=== PATIENT | female | born 1940 | race Caucasian/White ===

== ENCOUNTER → 2019-05-10 | Outpatient (CLI) | payer MEDICARE ==
--- NOTE | 2019-05-12 13:22 | MM ---
Reason for exam: screening (asymptomatic). History: Patient is postmenopausal. Benign excisional biopsy. Physical Findings: A clinical breast exam by your physician is recommended on an annual basis and results should be correlated with mammographic findings. MG 3D Screening Mammo W/Cad Bilateral CC and MLO view(s) were taken. No prior studies available for comparison. There are scattered fibroglandular densities. There is no discrete abnormality. ASSESSMENT: Benign, BI-RAD 2 RECOMMENDATION: Routine screening mammogram of both breasts in 1 year.
== END | disposition home or self-care (01) ==
LOC: RADBDWWP 12:42
PROVIDERS: ATTEND Internal Medicine
DX: Z12.31 Encounter for screening mammogram for malignant neoplasm of breast (principal)
CPT/HCPCS: 77063; 77067

== ENCOUNTER → 2019-05-17 | Outpatient (CLI) | payer MEDICARE ==
[2019-05-17 10:21] VITALS: BP 158/62; PULSE 68; RESP 18; TEMP 97.8; BMI 28.5
--- NOTE | 2019-05-17 11:42 | P.HPOB ---
History of Present Illness H&P Date: 05/17/19 Chief Complaint: The patient is here for her routine gynecologic exam. This is an 78-year-old with an LMP of approximately 1998. The patient is here to establish with this office. It has been about 2 years since her last pelvic exam. She recently moved from [place] and lost her medical records. She is without gynecologic complaints and denies any postmenopausal bleeding. Review of Systems She has gained about 10 pounds during the past several months. She had previously lost 80 pounds 3 years ago which helped with her diabetes. She denies respiratory, cardiac and G.I. problems. She denies maltreatment or problems with falling. : Occasional leakage with coughing. Past Medical History Past Medical History: COPD, Diabetes Mellitus, Hyperlipidemia, Hypertension, Renal Disease, Thyroid Disorder Additional Past Medical History / Comment(s): Osteopenia, type 2 diabetes(diet controlled), mild renal insufficiency, emphysema. 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 She used HRT for years until 1984. History of Any Multi-Drug Resistant Organisms: None Reported Past Surgical History: Tonsillectomy, Tubal Ligation Past Psychological History: No Psychological Hx Reported Smoking Status: Former smoker Past Alcohol Use History: Rare (12 per year) Additional Past Alcohol Use History / Comment(s): Previously smoked 1 pack of cigarettes per day and quit in 1991. Past Drug Use History: None Reported Additional History: She has been a since approximately 1988 and is not seeing anybody at this time and is not sexually active. 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 - Past Family History Mother Additional Family Medical History / Comment(s): of related complications. Father Additional Family Medical History / Comment(s): Alcohol abuse. A grandfather had diabetes. Medications and Allergies Home Medications Medication Instructions Recorded Confirmed Type Acetaminophen [Tylenol Extra 500 mg PO DAILY 05/17/19 05/17/19 History Strength] Aspirin 81 mg PO DAILY 05/17/19 05/17/19 History Atenolol 25 mg PO DAILY 05/17/19 05/17/19 History Biotin 5,000 mcg PO DAILY 05/17/19 05/17/19 History Cholecalciferol (Vitamin D3) 2,000 unit PO DAILY 05/17/19 05/17/19 History [Vitamin D3] Hydrochlorothiazide 25 mg PO DAILY 05/17/19 05/17/19 History Levothyroxine Sodium 88 mcg PO DAILY 05/17/19 05/17/19 History Losartan Potassium 50 mg PO DAILY 05/17/19 05/17/19 History Multivit-Min/FA/Lycopen/Lutein 1 each PO DAILY 05/17/19 05/17/19 History [Centrum Silver Tablet] Simvastatin 40 mg PO DAILY 05/17/19 05/17/19 History Stool Softener 1 tab PO DAILY 05/17/19 05/17/19 History traMADol HCL [Ultram] 50 mg PO Q4-6H 05/17/19 05/17/19 History Allergies Allergy/AdvReac Type Severity Reaction Status Date / Time carbamazepine [From Tegretol] Allergy Rash/Hives Unverified 05/17/19 10:21 lidocaine [From Xylocaine] Allergy Anaphylaxis Unverified 05/17/19 10:21 Exam Vital Signs Temp Pulse Resp BP Pulse Ox 05/17/19 10:15 97.8 F 68 18 158/62 97 Intake and Output 05/16/19 05/17/19 05/17/19 22:59 06:59 14:59 Other: Weight 73.028 kg Height 5 feet 3 inches, weight 161 pounds, BMI 28.5. This is a well-developed well-nourished white female who is alert and oriented times 3 in no acute distress. HEENT: Within normal limits. NECK: Supple without mass or thyromegaly. CHEST AND LUNGS: Clear to auscultation. HEART: Regular rate and rhythm. BREASTS: Are without mass or discharge. AXILLARY EXAM: Negative for adenopathy. BACK: Negative for CVA tenderness. ABDOMEN: Soft, nontender, without palpable masses. PELVIC EXAM: Normal external genitalia with mild to moderate atrophy. Cervix and vagina appear normal with mild atrophy. There is no unusual discharge. There is no evidence of prolapse. The uterus is midposition, nongravid size and nontender. There are no palpable adnexal masses or tenderness. RECTAL EXAM: Rectovaginal exam is negative for mass or tenderness and is negative for occult blood. EXTREMITIES: Nontender. IMPRESSION: 1. 78-year-old menopausal female with normal gynecologic exam. 2. History of osteopenia. PLAN: 1. Pap smear was performed. Since she does not have access to her medical records regarding Pap smears, I am unable to confirm adequate screening at this time. We will do cervical screening every 2-3 years and if she has 3 negative Pap smears within a 10 year period, we will consider discontinuing them. 2. Self breast awareness was discussed with the patient. 3. Screening mammogram was done on 05/10/2019 and was benign. She will repeat this yearly. 4. Osteoporosis prevention was discussed. I have stressed the importance of adequate calcium, vitamin D and regular exercise. Recommended amounts of ca lcium and vitamin D were also discussed. She states she is scheduled for a bone density test on 05/19/2019. 5. I have recommended screening colonoscopy since she has never had this done. I asked her to discuss this with her PCP to see if this can be arranged through that office. 6. The patient was advised to return in 1-2 years for her well woman examination.
== END | disposition home or self-care (01) ==
LOC: WWCWWP 10:00
PROVIDERS: ATTEND Obstetrics & Gynecology
DX: Z53.9 Procedure and treatment not carried out, unspecified reason (principal)

== ENCOUNTER → 2019-05-19 | Outpatient (CLI) | payer MEDICARE ==
--- NOTE | 2019-05-19 12:08 | BD ---
EXAMINATION TYPE: Axial Bone Density DATE OF EXAM: 05/19/2019 COMPARISON: NONE CLINICAL HISTORY: Z 78.0 Height: 61.5 Weight: 160 FRAX RISK QUESTIONS: Alcohol (3 or more units per day): no Family History (Parent hip fracture): no Glucocorticoids (More than 3mos): no (Ex: prednisone, prednisolone, methylprednisolone, dexamethasone, and hydrocortisone). History of Fracture in Adulthood: yes Secondary Osteoporosis: 1. Type 1 Diabetes: no 2. Hyperthyroidism: no 3. Menopause before 45: no 4. Malnutrition: no 5. Chronic liver disease: no Rheumatoid Arthritis: unsure...states years ago a physician diagnosed her with this, but no mention o f it recently with current physicians Current Tobacco Use: no RISK FACTORS HISTORY OF: Family History of Osteoporosis: unsure Active: yes Diet low in dairy products/other sources of calcium: at least one serving a day Postmenopausal woman: yes Take estrogen and/or progesterone medications: not now How long: hormonal contraceptives, estrogen, unsure how long Lost more than 2 inches in height since high school: yes Frequent falls: no Poor Health: no Hyperparathyroidism: no Adrenal Insufficiency: no MEDICATIONS: Prednisone or other steroids: yes, rescue inhaler in use periodically How Long: about 10 years Thyroid Medications:yes Which medication: Levothyroxine How Long: about 5 years Osteoporosis Medications: not now Which medication: unsure, several How Long: unsure Additional Medications: Simvastatin, atenolol, hydrochorthiazide, losartan potassium, ASA, Biotin, Ce ntrum Silver, Vit D 3 ,Tramadol Additional History: EXAM MEASUREMENTS: Bone mineral densitometry was performed using the [employer] System. Bone mineral density as measured about the Lumbar spine is: ----- L1-L4(G/cm2): 1.110 T Score Values are as follows: ----- L2: -0.7 ----- L3: -0.3 ----- L4: 0.3 ----- L1-L4: -0.6 Bone mineral density not previously done at this facility, done elsewhere Bone mineral density about the R hip (g/cm2): 0.725 Bone mineral density about the L hip (g/cm2): 0.694 T Score values are as follows: -----R Neck: -2.3 -----L Neck: -2.5 -----R Total: -1.6 -----L Total: -2.0 Bone mineral density not previously done at this facility, done elsewhere IMPRESSION: Osteoporosis (T Score less than -2.5). There is increased fracture risk and therapy is usually indicated based on age. Re-Screen 1-2 years. NOTE: T-SCORE=SD OF THE YOUNG ADULT MEAN.
== END | disposition home or self-care (01) ==
LOC: RADBDWWP 08:47
PROVIDERS: ATTEND Internal Medicine
DX: M81.0 Age-related osteoporosis without current pathological fracture (principal); Z78.0 Asymptomatic menopausal state
CPT/HCPCS: 77080